=== PATIENT | female | born 1990 | race Caucasian/White ===

== ENCOUNTER → 2022-06-18 10:25 | Outpatient (CLI) | payer SELFPAY ==
[2022-06-18 13:03] LABS: HCG,Quantitative 23752 mIU/ml (0-5.42)
== END ==
PROVIDERS: PCP Family Medicine; Visit Provider Obstetrics & Gynecology
DX: Z32.00 Encounter for pregnancy test, result unknown (principal); N92.6 Irregular menstruation, unspecified
CPT/HCPCS: 36415; 84702

== ENCOUNTER → 2022-06-22 12:00 | Outpatient (CLI) | payer SELFPAY ==
[2022-06-22 12:25] LABS: Basophils # 0.1 K/mm3 (0-0.2); Basophils % 0.6 % (0.1-2.0); Eosinophils # 0.2 K/mm3 (0.0-0.4); Eosinophils % 2.2 % (0.1-12.0); Hematocrit 41.2 % (37.0-47.0); Hemoglobin 13.4 g/dL (12.2-16.2); Lymphocytes # 1.6 K/mm3 (0.7-4.5); Lymphocytes % 19.4 % (10-50); Mean Corpuscular HGB Conc 32.4 g/dL (31.8-35.4); Mean Corpuscular Volume 89.5 fl (81-99); Mean Platelet Volume 7.8 fl (7.4-10.4); Monocytes # 0.3 K/mm3 (0.1-1.0); Monocytes % 3.7 % (1.7-9.3); Neutrophils % 74.1 % (37.0-80.0); Platelet Count 366 K/mm3 (142-424); Red Blood Count 4.61 M/mm3 (4.20-5.40); Red Cell Distribution Width 13.7 % (11.5-17.5); White Blood Count 8.1 K/mm3 (4.8-10.8)
[2022-06-22 13:22] LABS: HCG,Quantitative 18753 mIU/ml (0-5.42)
[2022-06-23 08:47] LABS: Progesterone 7.8 ng/mL (.)
[2022-06-26 08:00] LABS: Neisseria gonorrhoeae, NAA Negative (Negative)
== END ==
PROVIDERS: PCP Family Medicine; Visit Provider Obstetrics & Gynecology
DX: Z34.90 Encounter for supervision of normal pregnancy, unspecified, unspecified trimester (principal)
CPT/HCPCS: 36415; 84144; 84702; 85025; 86900; 86901; 87491; 87591

== ENCOUNTER → 2022-06-29 11:02 | Outpatient (CLI) | payer SELFPAY ==
[2022-06-29 14:09] LABS: HCG,Quantitative 8388 mIU/ml (0-5.42)
== END ==
PROVIDERS: PCP Family Medicine; Visit Provider Obstetrics & Gynecology
DX: O36.80X1 Pregnancy with inconclusive fetal viability, fetus 1 (principal)
CPT/HCPCS: 36415; 84702

== ENCOUNTER 2022-07-03 08:35 | Emergency (ER) | payer SELFPAY ==
[2022-07-03 08:37] VITALS: BP 136/84; PULSE 90; RESP 16; TEMP 36.7; O2SAT 99; BMI 30.1
[2022-07-03 08:41] VITALS: BP 136/84; PULSE 92; RESP 18; O2SAT 100
--- NOTE | 2022-07-03 08:48 | HMH.EDGENADL ---
Discharge Plan Disposition Patient Disposition: Home, Self-Care Condition: Good Prescriptions Prescriptions: New misoprostol [Cytotec] 200 mcg tablet 400 mcg PO QID 1 Days Qty: 8 0RF No Action ferrous sulfate 325 mg (65 mg iron) tablet 325 mg PO BID Referrals Follow up/Referrals: Stevie Garcia MD [Primary Care Provider] - See instructions Activity Restrictions/Add. Instructions Additional Instructions/Restrictions: Pelvic rest. Return for worsening bleeding or other concerns. 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 Clinical Impressions Clinical Impression: Incomplete Instructions Patient Instructions: Dealing With Miscarriage, DI for Miscarriage Discharge ED Provider: Rigoberto Acuna General Adult HPI General Chief complaint: Vaginal Bleeding Stated complaint: vaginal bleeding Time Seen by Provider: 07/03/22 08:42 History of Present Illness HPI narrative: Patient presents in her eighth week of complaining of vaginal bleeding and pelvic discomfort. She believes she has had a miscarriage and was persistent bleeding. She did have a previous ultrasound. She describes the bleeding as moderate to severe and without exacerbating or alleviating factors. This is her first . Related Data Home Medications Medication Instructions Recorded Confirmed ferrous sulfate 325 mg (65 mg 325 mg PO BID 06/22/22 06/22/22 iron) tablet Previous Rx's Medication Instructions Recorded misoprostol 200 mcg tablet 400 mcg PO QID 1 day #8 tabs 07/03/22 (Cytotec) Allergies Allergy/AdvReac Type Severity Reaction Status Date / Time No Known Allergies Allergy Verified 07/03/22 09:03 [facility] Medical History Rastafari ancestry with inconclusive viability, fetus 1 Social History (Updated 06/22/22 @ 11:49 by Sandra Page DO) Smoking Status: Never smoker alcohol intake: never current occupational status: unemployed Travel in the last 8 weeks: None ROS Obtained: Yes All systems reviewed & no additional complaints except as documented Physical Exam General General appearance: alert and in no apparent distress Head Head exam: atraumatic, normocephalic and normal inspection Eye Eye exam: Present normal appearance, PERRL and EOMI ENT ENT exam: Present normal exam, normal oropharynx, mucous membranes moist, TM's normal bilaterally and normal external ear exam Neck Neck exam: Present normal inspection, full ROM and trachea midline; Absent meningismus or lymphadenopathy Chest Chest inspection: Present normal inspection and symmetric chest wall rise; Absent tenderness Respiratory Respiratory exam: Present normal lung sounds bilaterally; Absent respiratory distress Cardiovascular Cardiovascular exam: Present regular rate and normal rhythm; Absent JVD Abdominal Exam Abdominal exam: Present tenderness (There is mild lower abdominal tenderness without rebound or guarding.) Speculum exam: Present vaginal bleeding Extremities Exam Extremities exam: Present normal inspection, full ROM and normal capillary refill; Absent calf tenderness Back Exam Back exam: Present normal inspection; Absent tenderness Neurological Exam Neurological exam: Present alert and oriented X3 Psychiatric Psychiatric exam: Present normal affect and normal mood Skin Skin exam: Present warm, dry, intact and normal color Lymphatic Lymphatic Findings: no adenopathy Medical Decision Making Medical Records Medical records reviewed: Yes I reviewed the patient's medical records. Roverto Inquiry Pt receiving controlled substance: No Vital Signs: 07/03/22 08:37 07/03/22 08:41 07/03/22 09:30 Temperature 98.1 F Temperature Source Oral Pulse Rate 92 H 87 Pulse Rate [Right Radial] 90 Respiratory Rate 16 18 18 Blood Pressure 136/84 125/85 Blood Pressure [Right Arm] 136/84 Blood Pressure
[2022-07-03 08:54] VITALS: BMI 32.1
--- NOTE | 2022-07-03 08:54 | US_ITS ---
FINAL REPORT CLINICAL HISTORY: vaginal bleeding first trimester FINDINGS: US TRANSVAGINAL Sonographic images of the pelvis were obtained. No gestational sac is identified. There is no intrauterine . There is an ovoid heterogeneous area in the lower uterine segment measuring 38 x 13 mm which may represent a blood clot or retained product of conception. There is a 2.6 cm left ovarian cyst. IMPRESSION: Findings consistent with failed . Reviewed, Interpreted and Dictated by Fabián Estrada III, MD Transcribed by Doris Islas Authenticated and [facility]
--- NOTE | 2022-07-03 09:02 | PC.NURSE ---
pt up to restroom at this time,
--- NOTE | 2022-07-03 09:05 | PC.NURSE ---
notified rad of ultrasound order, spoke with derick
[2022-07-03 09:07] LABS: Basophils # 0.1 K/mm3 (0-0.2); Basophils % 0.7 % (0.1-2.0); Eosinophils # 0.2 K/mm3 (0.0-0.4); Eosinophils % 2.7 % (0.1-12.0); Hematocrit 39.4 % (37.0-47.0); Hemoglobin 13.4 g/dL (12.2-16.2); Lymphocytes # 1.3 K/mm3 (0.7-4.5); Lymphocytes % 17.5 % (10-50); Mean Corpuscular HGB Conc 34.1 g/dL (31.8-35.4); Mean Corpuscular Hemoglobin 30.3 pg (27.0-31.2); Mean Corpuscular Volume 88.9 fl (81-99); Monocytes # 0.3 K/mm3 (0.1-1.0); Monocytes % 3.9 % (1.7-9.3); Neutrophils # 5.5 K/mm3 (1.8-7.8); Neutrophils % 75.2 % (37.0-80.0); Platelet Count 297 K/mm3 (142-424); Red Blood Count 4.43 M/mm3 (4.20-5.40); Red Cell Distribution Width 13.5 % (11.5-17.5); White Blood Count 7.4 K/mm3 (4.8-10.8)
[2022-07-03 09:15] LABS: Alanine Aminotransferase 29 U/L (12-78); Albumin Level 4.3 g/dl (3.5-5.0); Albumin/Globulin Ratio 1.9 (1.1-1.8); Alkaline Phosphatase 62 U/L (38-126); Aspartate Amino Transferase 28 U/L (14-36); Bilirubin,Total 0.3 mg/dl (0.2-1.3); Blood Urea Nitrogen 8 mg/dl (7-17); Calcium 10.7 mg/dl (8.4-10.2); Carbon Dioxide 27 mmol/L (22.0-30.0); Chloride 97 mmol/L (98-107); Creatinine Clearance Estimated 142 mL/min (50-200); Estimated Glomerular Filt Rate 98 ml/min (>60); GFR (African American) 118 ML/MIN (>60); Globulin 2.3 g/dL (1.3-3.2); Glucose 124 mg/dl (74-100); Sodium 138 mmol/L (136-145); Total Protein,Serum 6.6 g/dl (6.3-8.2)
--- NOTE | 2022-07-03 09:19 | PC.NURSE ---
assisted ER MD with pelvic exam at this time
[2022-07-03 09:30] VITALS: BP 125/85; PULSE 87; RESP 18; O2SAT 99
[2022-07-03 10:04] LABS: HCG,Quantitative 2180 mIU/ml (0-5.42)
[2022-07-03 10:30] VITALS: BP 108/74; PULSE 76; RESP 20; O2SAT 99
[2022-07-03 11:03] VITALS: BP 108/74; PULSE 79; RESP 18; TEMP 36.7; O2SAT 99
== END 2022-07-03 11:03 | disposition home or self-care (01) ==
PROVIDERS: Emergency Provider Emergency Medicine; PCP Family Medicine
DX: O03.4 Incomplete spontaneous abortion without complication (principal)
CPT/HCPCS: 76817; 80053; 84702; 85025; 86900; 86901; 99284

== ENCOUNTER → 2022-07-06 16:03 | Outpatient (CLI) | payer SELFPAY ==
[2022-07-06 17:32] LABS: HCG,Quantitative 377 mIU/ml (0-5.42)
== END ==
PROVIDERS: PCP Family Medicine; Visit Provider Obstetrics & Gynecology
DX: O03.9 Complete or unspecified spontaneous abortion without complication (principal)
CPT/HCPCS: 36415; 84702

== ENCOUNTER → 2022-07-13 15:58 | Outpatient (CLI) | payer SELFPAY ==
[2022-07-13 17:21] LABS: HCG,Quantitative 36 mIU/ml (0-5.42)
== END ==
PROVIDERS: PCP Family Medicine; Visit Provider Obstetrics & Gynecology
DX: O02.1 Missed abortion (principal)
CPT/HCPCS: 36415; 84702

== ENCOUNTER → 2022-07-22 16:35 | Outpatient (CLI) | payer SELFPAY ==
[2022-07-22 18:35] LABS: HCG,Quantitative 7 mIU/ml (0-5.42)
== END ==
PROVIDERS: PCP Family Medicine; Visit Provider Obstetrics & Gynecology
DX: O02.1 Missed abortion (principal)
CPT/HCPCS: 36415; 84702

== ENCOUNTER 2023-01-05 08:28 | Emergency (ER) | payer SELFPAY ==
[2023-01-05] VITALS (7 sets, daily range): BP systolic 103–132; BP diastolic 67–83; PULSE 80–93; RESP 16–17; TEMP 36.7–37.1; O2SAT 99–100; BMI 33.0
[2023-01-05 09:01] LABS: Apearance,Urine Clear (Clear); Color,Urine Yellow (Yellow); Glucose,Urine (UA) Negative (Negative); Ketones,Urine n (Negative); Protein,Urine Negative (Negative)
[2023-01-05 09:02] LABS: Bilirubin,Urine Negative (Negative); Blood, Urine Negative (Negative); UTC Leukocyte Esterase,Urine Negative (Negative); UTC Nitrate,Urine Negative (Negative); Urobilinogen,Urine 0.2 EU/dl (0.2)
--- NOTE | 2023-01-05 09:10 | PC.NURSE ---
BRI WOODRUFF at
--- NOTE | 2023-01-05 09:18 | HMH.EDABDPAI ---
Discharge Plan Disposition Patient Disposition: Home, Self-Care Condition: Good Prescriptions Prescriptions: New cephalexin 500 mg capsule 500 mg PO Q6H 7 Days Qty: 28 0RF No Action ferrous sulfate 325 mg (65 mg iron) tablet 325 mg PO BID misoprostol [Cytotec] 200 mcg tablet 400 mcg PO QID 1 Days Qty: 8 0RF Referrals Follow up/Referrals: Stevie Garcia MD [Primary Care Provider] - See instructions Activity Restrictions/Add. Instructions Additional Instructions/Restrictions: Return immediately for worsening abdominal pain, fever or other concerns. Clinical Impressions Clinical Impression: , Abdominal pain, Acute lower urinary tract infection Discharge ED Provider: Rigoberto Acuna Abdominal Pain HPI General Chief Complaint: Abdominal Pain Stated Complaint: abd pain, pain while urinating Time Seen by Provider: 01/05/23 09:10 Mode of Arrival: Ambulatory Source of Information: Patient Limitations: No Limitations Description of Symptoms (Recalled from ER Triage Doc. by RN): pt to the ED from the [facility] with abd. cramping and cloudy urine x 2 days. pt reports she believes she is approx. 7 weeks pregnany based on her LMP and home test. pt denies any vaginalbleeding or abnormal d/c. History of Present Illness HPI narrative: Patient presents with approximate 2 days of lower abdominal discomfort. She reports being approximately 7 weeks based on her LMP and home test. She denies abnormal vaginal discharge or bleeding. She describes the pain as mild to moderate and without associated nausea vomiting or diarrhea or fever. This is her second with her first having terminated in miscarriage. Related Data Home Medications Medication Instructions Recorded Confirmed ferrous sulfate 325 mg (65 mg 325 mg PO BID 06/22/22 06/22/22 iron) tablet Previous Rx's Medication Instructions Recorded misoprostol 200 mcg tablet 400 mcg PO QID 1 day #8 tabs 07/03/22 (Cytotec) cephalexin 500 mg capsule 500 mg PO Q6H 7 days #28 caps 01/05/23 Allergies Allergy/AdvReac Type Severity Reaction Status Date / Time No Known Allergies Allergy Verified 07/03/22 09:03 [facility] Disclaimer: The information contained in this section may have been updated after the patient was seen, as this information can be updated by other users. Medical History Restorationist ancestry with inconclusive viability, fetus 1 Social History (Updated 06/22/22 @ 11:49 by Sandra Page DO) Smoking Status: Never smoker alcohol intake: never current occupational status: unemployed Travel in the last 8 weeks: None ROS Obtained: Yes All systems reviewed & no additional complaints except as documented Physical Exam General General appearance: alert and in no apparent distress Head Head exam: atraumatic, normocephalic and normal inspection Eye Eye exam: Present normal appearance, PERRL and EOMI ENT ENT exam: Present normal exam, normal oropharynx, mucous membranes moist, TM's normal bilaterally and normal external ear exam Neck Neck exam: Present normal inspection, full ROM and trachea midline; Absent meningismus or lymphadenopathy Chest Chest inspection: Present normal inspection and symmetric chest wall rise; Absent tenderness Respiratory Respiratory exam: Present normal lung sounds bilaterally; Absent respiratory distress Cardiovascular Cardiovascular exam: Present regular rate and normal rhythm; Absent JVD Abdominal Exam Abdominal exam: Present tenderness (There is mild diffuse lower abdominal tenderness slightly worse on the left than the right. There is no rebound or guarding.) Extremities Exam Extremities exam: Present normal inspection, full ROM and normal capillary refill; Absent calf tenderness Back Exam Back exam: Present normal inspection; Absent tenderness Neurological Exam Neurologi
[2023-01-05 09:49] LABS: Basophils % 0.1 % (0.1-2.0); Eosinophils # 0.1 K/mm3 (0.0-0.4); Eosinophils % 0.4 % (0.1-12.0); Hematocrit 40.5 % (37.0-47.0); Hemoglobin 13.4 g/dL (12.2-16.2); Lymphocytes # 1.4 K/mm3 (0.7-4.5); Lymphocytes % 13.1 % (10-50); Mean Corpuscular HGB Conc 33.2 g/dL (31.8-35.4); Mean Corpuscular Hemoglobin 29.7 pg (27.0-31.2); Mean Corpuscular Volume 89.4 fl (81-99); Mean Platelet Volume 7.6 fl (7.4-10.4); Monocytes # 0.5 K/mm3 (0.1-1.0); Monocytes % 4.6 % (1.7-9.3); Neutrophils # 8.9 K/mm3 (1.8-7.8); Neutrophils % 81.8 % (37.0-80.0); Platelet Count 292 K/mm3 (142-424); Red Blood Count 4.53 M/mm3 (4.20-5.40); Red Cell Distribution Width 13.5 % (11.5-17.5); White Blood Count 10.9 K/mm3 (4.8-10.8)
[2023-01-05 09:52] LABS: Chloride 103 mmol/L (98-107); Sodium 137 mmol/L (136-145)
[2023-01-05 09:55] LABS: Alanine Aminotransferase 23 U/L (12-78); Albumin/Globulin Ratio 1.5 (1.1-1.8); Alkaline Phosphatase 50 U/L (38-126); Aspartate Amino Transferase 26 U/L (14-36); Bilirubin,Total 0.4 mg/dl (0.2-1.3); Blood Urea Nitrogen 10 mg/dl (7-17); Calcium 10.1 mg/dl (8.4-10.2); Carbon Dioxide 26 mmol/L (22.0-30.0); Creatinine Clearance Estimated 202 mL/min (50-200); Estimated Glomerular Filt Rate 143 ml/min (>60); GFR (African American) 173 ML/MIN (>60); Globulin 2.7 g/dL (1.3-3.2); Glucose 91 mg/dl (74-100); Lipase 91 U/L (23-300); Total Protein,Serum 6.7 g/dl (6.3-8.2)
[2023-01-05 10:04] LABS: Microscopic, Urine URINE MICROSCOPIC (MICROSCOPIC)
[2023-01-05 10:05] LABS: Urine Pregnancy, HCG Qual. Positive (Negative)
[2023-01-05 10:06] LABS: Appearance,Urine CLEAR (Clear); Bilirubin,Urine Negative (Negative); Blood, Urine Negative (Negative); Color,Urine YELLOW (Yellow); Glucose,Urine (UA) Negative (Negative); Ketones,Urine Negative (Negative); Leukocyte Esterase,Urine Negative (Negative); Nitrate,Urine Negative (Negative); Protein,Urine Negative (Negative); Specific Gravity, Urine <= 1.005 (1.005-1.030); Urobilinogen,Urine 0.2 EU/dl (0.2)
--- NOTE | 2023-01-05 10:26 | US_ITS ---
FINAL REPORT CLINICAL HISTORY: pelvic pain FINDINGS: PELVIC ULTRASOUND A single living intrauterine is present. Cardiac activity is confirmed at 169 beats per minute. Estimated gestational age is 10 weeks 4 days based on a crown-rump length of 36.6 mm. Appropriate amount of fluid is present. The ovaries are unremarkable. IMPRESSION: Single living intrauterine with an estimated gestational age of 10 weeks 4 days. Reviewed, Interpreted and Dictated by Morris Braga MD Transcribed by Kyle Thomas Authenticated and [facility]
--- NOTE | 2023-01-05 10:26 | PC.NURSE ---
per lab staff will be approx 12 minutes until results of beta quant
--- NOTE | 2023-01-05 10:27 | PC.NURSE ---
rad staff notified of u/s order
[2023-01-05 10:39] LABS: Bacteria,Urine Trace /lpf; Squamous Epithelial Cell,Urine Occasional #/hpf (0-5)
--- NOTE | 2023-01-05 10:45 | PC.NURSE ---
CHECKED IN NOTHING IS NEEDED AT THIS TIME
--- NOTE | 2023-01-05 10:56 | PC.NURSE ---
pt to u/s via wheelchair
--- NOTE | 2023-01-05 11:17 | PC.NURSE ---
pt return from u/s
--- NOTE | 2023-01-05 11:57 | PC.NURSE ---
waiting automation technician back from MRI to see about ability to do an abd/pelvis to r/o appendicitis r/t pt is .
--- NOTE | 2023-01-05 12:17 | PC.NURSE ---
came out of pt room and informed this nurse that the patient has changed her mind decided against the MRI at this time.
== END 2023-01-05 12:42 | disposition home or self-care (01) ==
LOC: UTC 08:31 → ER 09:04
PROVIDERS: Nurse Practitioner Family; Emergency Provider Emergency Medicine; PCP Family Medicine
DX: O23.31 Infections of other parts of urinary tract in pregnancy, first trimester (principal); Z3A.01 Less than 8 weeks gestation of pregnancy
CPT/HCPCS: 76817; 80053; 81001; 81003; 81025; 83690; 84702; 85025; 87086; 99284; 99285

== ENCOUNTER → 2023-01-12 16:32 | Outpatient (CLI) | payer SELFPAY ==
[2023-01-14 11:17] LABS: Progesterone 13.9 ng/mL (.)
== END ==
PROVIDERS: PCP Obstetrics & Gynecology; Visit Provider Obstetrics & Gynecology
DX: Z34.90 Encounter for supervision of normal pregnancy, unspecified, unspecified trimester (principal)
CPT/HCPCS: 36415; 84144; 84702

== ENCOUNTER → 2023-01-15 09:26 | Outpatient (CLI) | payer SELFPAY ==
[2023-01-15 10:20] LABS: Basophils % 0.5 % (0.1-2.0); Eosinophils # 0.1 K/mm3 (0.0-0.4); Eosinophils % 1.2 % (0.1-12.0); Hematocrit 39.7 % (37.0-47.0); Hemoglobin 13.6 g/dL (12.2-16.2); Lymphocytes # 1.2 K/mm3 (0.7-4.5); Lymphocytes % 19.5 % (10-50); Mean Corpuscular HGB Conc 34.2 g/dL (31.8-35.4); Mean Corpuscular Hemoglobin 29.9 pg (27.0-31.2); Mean Corpuscular Volume 87.5 fl (81-99); Mean Platelet Volume 7.4 fl (7.4-10.4); Monocytes # 0.3 K/mm3 (0.1-1.0); Monocytes % 5.5 % (1.7-9.3); Neutrophils # 4.3 K/mm3 (1.8-7.8); Neutrophils % 73.4 % (37.0-80.0); Platelet Count 287 K/mm3 (142-424); Red Blood Count 4.53 M/mm3 (4.20-5.40); Red Cell Distribution Width 13.3 % (11.5-17.5); White Blood Count 5.9 K/mm3 (4.8-10.8)
[2023-01-16 12:28] LABS: HIV Screen 4th Generation wRfx Non Reactive (Non Reactive); Rapid Plasma Reagin Ab Titer Non Reactive (NonRea<1:1); Rubella Antibodies, IgG <0.90 index (Immune >0.99)
[2023-02-23 23:57] LABS: Hepatitis B Surface Antigen Negative; Hepatitis C Antibody Non Reactive
== END ==
PROVIDERS: PCP Obstetrics & Gynecology; Visit Provider Obstetrics & Gynecology
DX: Z34.91 Encounter for supervision of normal pregnancy, unspecified, first trimester (principal); Z3A.11 11 weeks gestation of pregnancy
CPT/HCPCS: 36415; 85025; 86593; 86703; 86762; 86850; 87086; 87088; 87186; 87340; 87380; G0432

== ENCOUNTER → 2023-03-24 12:50 | Outpatient (CLI) | payer SELFPAY ==
--- NOTE | 2023-03-24 12:51 | US_ITS ---
PROCEDURE: US OB /MATERNAL DETAIL CLINICAL INDICATION: 20 WEEK ANATOMY SCAN COMPARISON: US US OB TRANSVAGINAL from 01/05/2023 FINDINGS: Transabdominal sonographic images of the uterus were obtained. From her established due date she is 21 weeks 3 days single viable intrauterine gestation. Cephalic position. Placenta: Anteriorplacenta grade 1. There is average amount fluid. The cervix appears satisfactory. Closed and measuring 4.8 cm in length. Complete survey performed and was unremarkable on the submitted images as in PACS. No discrete anomalies identified on survey imaging by technologist. Active fetus. Three-vessel cord with satisfactory umbilical cord insertion. 4- chamber heart noted. Situs, LVOT, RVOT, aortic arch appear normal. Survey of brain & ventricles Unremarkable. Cerebellum, cisterna magna, choroid plexus, thalamus appear normal Face and neck survey unremarkable. Lips and nose, profile and nasion appear normal Diaphragm and chest views unremarkable. Abdomen: Both kidneys noted and both have renal pyelectasis measuring 6.0 mm and 4.4 mm. Stomach and bladder noted and satisfactory. Spine: Survey of the spine satisfactory with no anomalies identified nor imaged. Upper, thoracic and lower spine appear normal. Both arms and legs noted. Amniotic Fluid: Adequate. Measurements: Average ultrasound age 21weeks 4days. Estimated due date by ultrasound age 1207/31/2023. Estimated weight 436g BPD = 22weeks OFD = 21weeks HC = 20weeks 5days AC = 21weeks 6days FL = 21weeks 5days Growth Percentile= 53rd Heart Rate = 142bpm Cerebellum = 21weeks 2days Humerus = 21weeks 2days HC/AC is 1.09 CI is 0.83 FL/BPD is 0.7 FL/AC is 0.22 IMPRESSION: 1. Viable fetus in the cephalic presentation with an anterior placenta grade 1. The fluid is within normal limits. 2. There is bilateral renal pyelectasis measuring 6.0 mm and 4.4 mm. The rest of the anatomical scan appears normal. 3. There has been good interval growth. Dictated by: Washington Keating MD 03/24/2023 15:44 Washington Keating MD in OV 03/24/2023 15:44
== END ==
PROVIDERS: PCP Family Medicine; Visit Provider Obstetrics & Gynecology
DX: Z34.92 Encounter for supervision of normal pregnancy, unspecified, second trimester (principal); Z3A.20 20 weeks gestation of pregnancy
CPT/HCPCS: 76811

== ENCOUNTER → 2023-04-21 10:31 | Outpatient (CLI) | payer SELFPAY ==
--- NOTE | 2023-04-21 10:31 | US_ITS ---
PROCEDURE: US OB FOLLOW UP CLINICAL INDICATION: renal abnormality of fetus on ultrasound COMPARISON: US OB /MATERNAL DETAIL from 03/24/2023 FINDINGS: Transabdominal sonographic images of the uterus were obtained. The following parameters are obtained: From her last established due date she is 24weeks 5days Viable fetus in the cephalic presentation with an anterior placenta grade 1. The cervix measures 4.3 cm. heart rate: 156bpm bpm. BPD: 25weeks 4days HC: 25weeks 5days AC: 25weeks 0 days FL: 24weeks 1day 40 percentile HC/AC: 1.16 FL/BPD: 0.68 FL/AC: 0.21 Amniotic fluid appears normal No obvious anomalies evident. Diaphragm, kidneys, three-vessel cord, four chamber heart appear normal. IMPRESSION: 1. Viable fetus in the cephalic presentation with anterior placenta grade 1. The fetus is active. 2. Fluid is within normal limits. 3. There has been good interval growth. 4. There continues to be mild renal pelvis dilation bilaterally. It seems similar to the last exam and maybe even a little less. There is no progression of the dilation. Suggest continued follow-up. Dictated by: Washington Keating MD 04/22/2023 09:17 Washington Keating MD in OV 04/22/2023 09:17
== END ==
PROVIDERS: PCP Family Medicine; Visit Provider Obstetrics & Gynecology
DX: O35.EXX0 Maternal care for other (suspected) fetal abnormality and damage, fetal genitourinary anomalies, not applicable or unspecified (principal)
CPT/HCPCS: 76816

== ENCOUNTER → 2023-07-08 12:45 | Outpatient (CLI) | payer SELFPAY ==
--- NOTE | 2023-07-08 12:46 | US_ITS ---
PROCEDURE: US OB FOLLOW UP CLINICAL INDICATION: renal pelvic dilation COMPARISON: US US OB FOLLOW UP from 04/21/2023 FINDINGS: Transabdominal sonographic images of the pelvis were obtained. The following parameters are obtained: From her established due date she is 35weeks 6days Viable fetus in the cephalic presentation with an anterior placenta grade 2. The cervix measures 2.3 cm. heart rate: 123bpm bpm. BPD: 37weeks 1day HC: 37weeks 4days AC: 35weeks 5days FL: 35weeks 3days HC/AC: 1.04 BPD: 0.75 FL/AC: 0.22 Growth percentile 53 Amniotic fluid index: 10.85cm, MVP 6.0 cm. No obvious anomalies evident. profile seen, stomach, bladder, kidneys, three-vessel cord, four chamber heart appear normal. Minimal renal pelvis dilation today. 3.5 mm and 2.9 mm. IMPRESSION: 1. Viable fetus in the cephalic presentation with an anterior placenta grade 2. 2. The fluid is within normal limits with an amniotic fluid index of 10.85 cm, MVP 6.0 cm. 3. There has been good interval growth with the fetus currently 53rd percentile. 4. There still remains mild renal pelvis dilation at 3.5 mm and 2.9 mm. Considered normal at this time. Dictated by: Washington Keating MD 07/09/2023 11:23 Washington Keating MD in OV 07/09/2023 11:23
== END ==
PROVIDERS: PCP Family Medicine; Visit Provider Obstetrics & Gynecology
DX: N28.89 Other specified disorders of kidney and ureter (principal)
CPT/HCPCS: 76816

== ENCOUNTER → 2023-07-14 09:12 | Outpatient (CLI) | payer SELFPAY | PROVIDERS: PCP Obstetrics & Gynecology; Visit Provider Obstetrics & Gynecology | DX: Z34.93 Encounter for supervision of normal pregnancy, unspecified, third trimester (principal); Z3A.37 37 weeks gestation of pregnancy | CPT/HCPCS: 86403 ==

== ENCOUNTER 2023-08-13 06:25 | Inpatient (IN) | payer SELFPAY ==
[2023-08-13] VITALS (11 sets, daily range): BP systolic 107–147; BP diastolic 61–111; PULSE 76–146; RESP 16–18; TEMP 36.1–36.6; O2SAT 94–100; BMI 38.4
[2023-08-13 06:21] LABS: Microscopic, Urine URINE MICROSCOPIC (MICROSCOPIC)
[2023-08-13 06:22] LABS: Appearance,Urine CLEAR (Clear); Bilirubin,Urine Negative (Negative); Blood, Urine Negative (Negative); Color,Urine YELLOW (Yellow); Glucose,Urine (UA) Negative (Negative); Ketones,Urine Negative (Negative); Leukocyte Esterase,Urine 2+ (Negative); Nitrate,Urine Negative (Negative); PH,Urine 6.5 (5.0-8.5); Protein,Urine Negative (Negative); Specific Gravity, Urine 1.015 (1.005-1.030); Urobilinogen,Urine 0.2 EU/dl (0.2)
[2023-08-13 06:36] LABS: Amphetamine/Metha Screen,Urine Negative ng/ml (<1000); Barbiturates Screen,Urine Negative ng/ml (<200); Benzodiazepines Screen,Urine Negative ng/ml (<200); Cannabinoid Screen,Urine Negative ng/ml (<50); Cocaine Screen,Urine Negative ng/ml (<300); Methadone Screen,Urine Negative ng/ml (<300); Opiate Screen,Urine Negative ng/ml (<300)
[2023-08-13 06:45] LABS: Basophils # 0.1 K/mm3 (0-0.2); Basophils % 0.6 % (0.1-2.0); Eosinophils # 0.1 K/mm3 (0.0-0.4); Eosinophils % 1.6 % (0.1-12.0); Hematocrit 40.1 % (37.0-47.0); Hemoglobin 13.8 g/dL (12.2-16.2); Lymphocytes # 1.7 K/mm3 (0.7-4.5); Lymphocytes % 20.9 % (10-50); Mean Corpuscular HGB Conc 34.5 g/dL (31.8-35.4); Mean Corpuscular Hemoglobin 30.6 pg (27.0-31.2); Mean Corpuscular Volume 88.7 fl (81-99); Mean Platelet Volume 8.3 fl (7.4-10.4); Monocytes # 0.4 K/mm3 (0.1-1.0); Monocytes % 5.2 % (1.7-9.3); Neutrophils # 5.8 K/mm3 (1.8-7.8); Neutrophils % 71.6 % (37.0-80.0); Platelet Count 232 K/mm3 (142-424); Red Blood Count 4.52 M/mm3 (4.20-5.40); Red Cell Distribution Width 14.7 % (11.5-17.5); White Blood Count 8.1 K/mm3 (4.8-10.8)
[2023-08-13 06:56] LABS: Alanine Aminotransferase 36 U/L (12-78); Albumin Level 3.5 g/dl (3.5-5.0); Albumin/Globulin Ratio 1.3 (1.1-1.8); Alkaline Phosphatase 131 U/L (38-126); Anion Gap 6.9 mEq/L (5-15); Aspartate Amino Transferase 33 U/L (14-36); Bilirubin,Total 0.3 mg/dl (0.2-1.3); Blood Urea Nitrogen 12 mg/dl (7-17); Calcium 9.5 mg/dl (8.4-10.2); Carbon Dioxide 21 mmol/L (22.0-30.0); Chloride 107 mmol/L (98-107); Creatinine Clearance Estimated 243 mL/min (50-200); Estimated Glomerular Filt Rate 143 ml/min (>60); GFR (African American) 173 ML/MIN (>60); Globulin 2.7 g/dL (1.3-3.2); Glucose 94 mg/dl (74-100); Potassium 3.9 mmoL/L (3.5-5.1); Sodium 131 mmol/L (136-145); Total Protein,Serum 6.2 g/dl (6.3-8.2)
[2023-08-13 07:10] LABS: Bacteria,Urine 1+ /lpf
--- NOTE | 2023-08-13 07:32 | P.HP_ITS ---
OB - H&P: HPI Antepartum History of Present Illness Chief complaint: Regular, painful uterine contractions History of present illness: Mrs Ela Potts is a very pleasant 32 yo at 41w0d who presents to [facility] L&D with complaint of regular, painful uterine contractions that woke her from sleep around 0330 this morning. Baby is very active. No leakage of fluid or vaginal bleeding. She has had good care. complicated by GDMA1. She has had great glycemic control with diet. History of Present Criteria for establishing EDC:: LMP confirmed by 1st trimester US care: good care Ultrasounds: abnormal US findings (mild renal pelvis dilation) Obstetrical complications: gestational diabetes (diet controlled) Medical complications: none Labs Blood type: A (+) positive Rubella: nonimmune RPR/VDRL: nonreactive GBS status: negative HBsAG: negative PFSH PFSH Disclaimer: The information contained in this section may have been updated after the patient was seen, as this information can be updated by other users. Medical History Active labor Dilation of renal pelvis of fetus Gestational diabetes mellitus, class A1 Post term , 41 weeks with inconclusive viability, fetus 1 Rubella non-immune status, antepartum Surgical History History of surgery on arm Family History Other No significant family history Social History Smoking Status: Never smoker alcohol intake: never current occupational status: other Travel in the last 8 weeks: None Review of Systems Review of Systems Review of systems:: pertinent systems reviewed and negative unless documented below *Genitourinary Comments: + regular, painful contractions Meds Home Medications and Allergies Home Medications Medication Instructions Recorded Confirmed Type vits no.126-ferrous fum tab PO 01/15/23 08/10/23 History 28 mg iron-folic acid 800 mcg tablet (Classic ) vitamin B complex (B 1 tab PO DAILY 01/15/23 08/10/23 History Complex-Vitamin B12 tablet) New Prescriptions to Start Prescriptions: Allergies Allergy/AdvReac Type Severity Reaction Status Date / Time No Known Allergies Allergy Verified 08/10/23 08:21 OB - H&P: Exam Physical Exam Vital signs: Temp Pulse Resp BP Pulse Ox O2 Del Method 97.6 F 76 17 131/97 H 99 Room Air 08/13/23 07:01 08/13/23 07:01 08/13/23 07:01 08/13/23 07:01 08/13/23 07:01 08/13/23 07:01 Constitutional no acute distress and cooperative Routine HEENT Exam Head: Present normocephalic and atraumatic Eye: Absent conjunctivae pink ENT: Present mucous membranes moist Routine Neck Exam Present full ROM Routine Respiratory Exam Present CTA bilaterally and normal respiratory effort Routine Cardiovascular Exam Present RRR Routine Abdominal Exam Present soft (Gravid); Absent tenderness Routine Rectal Exam Patient deferred: visual exam Routine Exam Patient deferred: external exam Routine Extremities Exam Present full ROM; Absent edema or calf tenderness Routine Neurological Exam Present alert, oriented X3 and moving all extremities Routine Psychiatric Exam Present normal affect and cooperative Detailed Labor and Delivery Exam Dilation (cm): 8 Effacement (%): 95 Cervix position: anterior station: 0 Membranes: artificially ruptured (0718 with clear fluid) Amniotic fluid: clear Baseline heart rate: 130 monitor accelerations: Present monitor decelerations: None retirement variability: Moderate (11-25) Contraction frequency (min): 3 Tachysystole: No OB - Results Labs Labs: Short CBC 08/13/23 Range/Units 06:32 WBC 8.1 (4.8-10.8) K/mm3 Hgb 13.8 (12.2-16.2) g/dL Hct 40.1 (37.0-47.0) % Plt Count 232 (142-424) K/mm3 BMP 08/13/23 06:32 Sodium 131 L Potassium 3.9 Chloride 107 Carbon Dioxide 21 L BUN 12 Creatinine 0.50 L Glucose 94 Calcium 9.5 Liver Function 08/13/23 Range/Units 06:32 Total Bilirubin 0.3 (0.2-1.3) mg/dl AST 33 (14-36) U/L ALT 36 (12-78) U/L Alkaline Phosphatase 131 H (38-126) U/L Albumin 3.5 (3.5-5.0) g/dl Urine 08/13/23 Range/Units 06:00 Urine Color Yellow (Yellow) Urine Appearance Clear (Clear) Urine pH 6.5 (5.0-8.5) Ur Specific [place] 1.015 (1.005-1.030) Urine Protein Negative (Negative) Urine Glucose (UA) Negative (Negative) OB - A/P Antepartum (1) Post term , 41 weeks: Status: Acute (2) Active labor: Status: Acute (3) Gestational diabetes mellitus, class A1: Status: Acute (4) Dilation of renal pelvis of fetus: Status: Acute (5) Rubella non-immune status, antepartum: Status: Acute Additional Plan Planning to breastfeed?: Yes Additional Information:: Admit to [facility] L&D for active labor GBS negative Close monitoring Anticipate spontaneous vaginal delivery
[2023-08-13 08:16] LABS: Phencyclidine Screen,Urine Negative ng/ml (<25)
[2023-08-13] MEDS: OXYTOCIN 10 UNITS/ML VIAL 10 UNIT IM (14:18)
[2023-08-13] MEDS: HYDROMORPHONE 2MG/ML SYRINGE 1 MG IV (14:38)
--- NOTE | 2023-08-13 15:01 | EXP.DN ---
Delivery Note Delivery Date:: 08/13/23 Delivery Time:: 14:12 Anesthesia Type: None Was labor medically induced?: No Gestational age (weeks): 41 Infant delivered prior to 39 weeks?: No Gender: Female at 1 minute: 6 at 5 minutes: 7 Delivery Procedure:: Mom complete without epidural. Pushed for approximately 1 hour 19 minutes. Kiwi vacuum was applied at +2 station for maternal exhaustion and poor expulsive effort. Vacuum pulled through one contraction, no pop offs. Vacuum removed. Head delivered spontaneously over intact perineum in direct OA position. No nuchal cord. Anterior shoulder delivered with gentle downward pressure. Posterior, left, arm was internally rotated with hand under chin. Left arm delivered follow by spontaneous delivery of posterior shoulder and remainder of body. Baby placed on maternal abdomen, mouth and nares bulb suctioned, warmed/dried and stimulated. Delayed cord clamping was performed for 60 seconds. Cord was clamped and cut by father of baby. Cord blood was obtained. Pitocin IM was given. Fundal massage and gentle traction did not release the placenta. Mom was given a chance to rest. Fundal massage with gentle traction was initiated again. Cord avulsion occurred. Ela was given Dilaudid 1 mg IV and manual extraction was attempted without success. Mom tolerated manual extraction attempt well. Decision was made to go to the OR for removal of retained placenta. Mom and baby were skin to skin and doing well after delivery. Live female baby (baby's name is Alva Vargas) APGARs 6 (1 min), 7 (5 Min) EBL 200 mL Discussed risks, alternatives, expectations and possible complications of manual extraction. Risks include infection, bleeding and damage to adjacent structures. Discussed possibility of rare placenta accreta undiagnosed. Discussed risk of hysterectomy. All questions addressed and answered. Her and her voiced understanding of risks and possible complications. Consent form signed.
--- NOTE | 2023-08-13 15:14 | EXP.ANES.CKL ---
[facility] Disclaimer: The information contained in this section may have been updated after the patient was seen, as this information can be updated by other users. Medical History Active labor Dilation of renal pelvis of fetus Gestational diabetes mellitus, class A1 Post term , 41 weeks with inconclusive viability, fetus 1 Rubella non-immune status, antepartum Surgical History History of surgery on arm Family History Other No significant family history Social History Smoking Status: Never smoker alcohol intake: never substance use type: denies use current occupational status: other Travel in the last 8 weeks: None [facility] Anesthesia Checklist Patient Identification Patient Identification: Arm Band and Verbal (Name & ) Structural Data Admitted From: Inpatient (OB) Planned Operative Procedure/s: Manual evacuation of retained placenta vs. D& E Consent for Planned Operative Procedure(s) Verified: Yes Verified Documents: Surgical Consent and History and Physical NPO Status Verified Time NPO: 15:00 Chart Verification Results Verified: CBC, BMP and H & H Additional verifications Patient : No Anesthesia Reactions: No Cardiovascular Assessment Heart Sounds: S1 & S2 Pulse Rhythm: Irregular Peripheral Edema: No Airway Assessment Mallampati Score:: Class II C-Spine Mobility Assessed: Yes (FROM) TMJ Mobility Assessed: Yes Dentition: Good Dentition (Nothing loose per pt.) Neurological Assessment Level of Consciousness: Awake, Alert, Appropriate and Follows Commands Hx Seizures: No Numbness or tingling in extremities: No Anesthesia Plan Anesthesia Risk discussed: Yes Anesthesia Plan: Verified ASA Class: II (Emergency) Anesthesia Type: Spinal
[2023-08-13] MEDS: miSOPROStoL 200 MCG TABLET 1000 MCG (15:55)
--- NOTE | 2023-08-13 15:56 | US_ITS ---
PROCEDURE INFORMATION: Exam: US Nonobstetric Pelvis; Complete Exam date and time: 08/13/2023 3:31 PM Age: 32 years old Clinical indication: Other: Hemorrhaging after delievery; Additional info: Retained placenta TECHNIQUE: Imaging protocol: Transabdominal pelvic nonobstetric ultrasound. Complete exam. Real time ultrasound with image documentation. COMPARISON: US OB FOLLOW UP 07/08/2023 12:48 PM FINDINGS: Uterus: Limited cine loops of the uterus demonstrate: Heterogeneous echogenic material within the endometrial canal favored to represent blood products. No definitive hematoma or masslike lesions to suggest retained products of conception. Right ovary/adnexa: Not evaluated. Left ovary/adnexa: Not evaluated Intraperitoneal space: Not evaluated Urinary bladder: Not evaluated. IMPRESSION: Limited evaluation of the uterus demonstrate heterogeneous echogenic material within the endometrial canal favored to represent blood products. No definitive hematoma or masslike lesions to suggest retained products of conception.
--- NOTE | 2023-08-13 16:12 | XR_ITS ---
FINAL REPORT CLINICAL HISTORY: count in OR FINDINGS: SINGLE VIEW ABDOMEN A single view of the abdomen was obtained. There is a nonobstructive bowel gas pattern. There are no abnormally dilated loops of small bowel. No abnormal calcifications are identified. No foreign body identified. IMPRESSION: No foreign body identified. Reviewed, Interpreted and Dictated by Fabián Estrada III, MD Transcribed by Apryl Rebolledo Authenticated and [facility]
--- NOTE | 2023-08-13 16:21 | EXP.OP.NOTE ---
Date of procedure: 08/13/23 Pre-op Diagnosis:: 1. Retained placenta s/p vacuum assisted vaginal delivery 2. hemorrhage Post-op Diagnosis:: 1. Retained placenta s/p vacuum assisted vaginal delivery 2. hemorrhage Procedure performed:: Exam under anesthesia with spontaneous expulsion of placenta Surgeon:: Sandra Page DO Emer[employer] Wheel Molder(s):: Iesha Gavin DO SOLUTION SALES SENIOR EXECUTIVE:: Other (RAFAEL De Leon) Anesthesia: GETA Estimated blood loss (mL): 2,000 Clinical Note:: Mrs Ela Potts is a 32 yo at 41 weeks admitted to [facility] Labor and Delivery for active Labor. Upon arrival to L&D cervical exam was /-1. GBS negative. Amniotomy was performed with clear fluid noted. She progressed to complete without further intervention. She pushed for approximately 1 hr 19 minutes. Vacuum was placed on baby's head secondary to maternal exhaustion and poor expulsive efforts. Vacuum was pulled through one contraction, no pop offs. Baby delivered without difficulty. See delivery note for details. Fundal massage and gentle traction on umbilical cord failed to deliver placenta. Cord avulsion occurred. Manual extraction was attempted without success. Decision was made to proceed to OR for extraction of retained placenta. Operative findings:: 1. Retained placenta delivering spontaneously in the OR with brisk vaginal bleeding 2. Intraoperative abdominal ultrasound performed without any further retained products Operative note:: While in preop, lEa reported she felt different. On exam, brisk vaginal bleeding was noted. She was quickly taken to the OR and placed under general anesthesia without difficulty. She was given 1 gram TXA, IV fluid bolus, and 2 unit PRBCs. DIC panel was ordered. Brisk bleeding continued and upon exam placenta had and was delivering spontaneously. Exam under anesthesia was performed with sterile gloves. Intraoperative abdominal ultrasound was performed. No further retained products visualized. Bleeding had slowed. Cytotec 1000 mcg was placed rectally. Bleeding was reevaluated and a slow intermittent trickle was observed. Fundal massage demonstrated fundus firm and below umbillicus. She was awaken from anesthesia without difficulty. Unasyn 3 grams every 6 hours was ordered for endometritis prophylaxis. Condition: stable Disposition: floor Specimens:: None Complications:: None
--- NOTE | 2023-08-13 16:24 | P.PNANES_ITS ---
[facility] Anesthesia Record Part I Anesthesia Record I Intake, IV Amount: 900 Hydration: Adequate Estimated blood loss (mL): 500 Urine output (mL): 400 Blood Products used (#): PRBC's (2 units PRBC's + Hespan 6% x 500mL) Blood Pressure: 107/74 SaO2: 94 Pulse Rate: 99 Airway Patency: Patent Respiratory Rate: 16 Temperature: 97.5 F Patient is:: Awake (Talking) and Stable Stable to PACU at:: 16:05
--- NOTE | 2023-08-13 17:06 | SUR.OPER ---
Emergent blood given in the OR. Both were given by this RN and verified w/ ABIMAEL Anderson. First unit: [id number] Started at 1527 117/61 146 HR 99% RA 97.0 F Ended at 1546 138/74 134 HR 98% RA 97.2 F Second Unit: [id number] Started at 1552 125/63 128 HR 98% RA 97.0 F Ended at 1602 106/64 127 HR 95% RA 97.5 F
[2023-08-13] MEDS: OXYTOCIN/RINGERS LACTATE 30 UNITS/500 ML BAG 40 UNITS IV (17:10)
[2023-08-13] MEDS: AMPICILLIN/SULBACTAM 3 GM in 0.9 % SODIUM CHLORIDE 100 ML IV ×2 (18:30→23:53)
[2023-08-13] MEDS: ACETAMINOPHEN 500MG TAB 1000 MG PO (20:45)
[2023-08-13] MEDS: SODIUM CHLORIDE 0.9% 10ML FLUSH SYRINGE 10 ML IV (23:54)
[2023-08-14 03:41] VITALS: BP 124/76; PULSE 84; RESP 17; TEMP 36.9; O2SAT 98
[2023-08-14] MEDS: AMPICILLIN/SULBACTAM 3 GM in 0.9 % SODIUM CHLORIDE 100 ML IV ×3 (06:06→18:28)
[2023-08-14 07:10] LABS: Basophils % 0.2 % (0.1-2.0); Eosinophils % 0.3 % (0.1-12.0); Hematocrit 33.5 % (37.0-47.0); Hemoglobin 11.2 g/dL (12.2-16.2); Lymphocytes # 1.8 K/mm3 (0.7-4.5); Mean Corpuscular HGB Conc 33.3 g/dL (31.8-35.4); Mean Corpuscular Hemoglobin 29.5 pg (27.0-31.2); Mean Corpuscular Volume 88.6 fl (81-99); Mean Platelet Volume 8.2 fl (7.4-10.4); Monocytes # 0.5 K/mm3 (0.1-1.0); Monocytes % 3.9 % (1.7-9.3); Neutrophils # 10.4 K/mm3 (1.8-7.8); Neutrophils % 81.6 % (37.0-80.0); Platelet Count 206 K/mm3 (142-424); Red Blood Count 3.79 M/mm3 (4.20-5.40); Red Cell Distribution Width 15.3 % (11.5-17.5); White Blood Count 12.7 K/mm3 (4.8-10.8)
[2023-08-14 09:00] VITALS: BP 112/68; PULSE 114; RESP 18; TEMP 36.9; O2SAT 98
[2023-08-14 15:14] VITALS: BP 114/73; PULSE 111; RESP 18; TEMP 36.9
--- NOTE | 2023-08-14 16:12 | P.DS_ITS ---
General Admission date:: 08/13/23 Discharge date: 08/14/23 HPI HPI HPI: PPD # 1 s/p VAVD, retained placenta with hemorrhage Ela is doing well. She is sore but not requiring any medication for pain. Very light bleeding. Breast and formula feeding. Voiding without difficulty and passing flatus. Tolerating regular diet. No fever/chills, chest pain or shortness of breath. No headaches, vision changes, lightheadedness/dizziness. Ambulating well ad nico. Admits to bilateral feet swelling. No calf pain. Hospital Course Hospital Course Hospital Course: Mrs Ela Potts is a 32 yo at 41 weeks admitted to [facility] Labor and Delivery for active Labor. Upon arrival to L&D cervical exam was /-1. GBS negative. Amniotomy was performed with clear fluid noted. She progressed to complete without further intervention. She pushed for approximately 1 hr 19 minutes. Vacuum was placed on baby's head secondary to maternal exhaustion and poor expulsive efforts. Vacuum was pulled through one contraction, no pop offs. Baby delivered without difficulty. Fundal massage and gentle traction on umbilical cord failed to deliver placenta. Cord avulsion occurred. Manual extraction was attempted without success. Decision was made to proceed to OR for extraction of retained placenta. She delivered a live female baby, Alva Vargas, weighing 7 lb 7 oz. APGARs 6 (1 min), 7 (5 min). EBL 200 mL While in preop, Ela reported she felt different. On exam, brisk vaginal bleeding was noted. She was quickly taken to the OR and placed under general anesthesia without difficulty. She was given 1 gram TXA, IV fluid bolus, and 2 unit PRBCs. DIC panel was ordered. Brisk bleeding continued and upon exam placenta had and was delivering spontaneously. Exam under anesthesia was performed with sterile gloves. Intraoperative abdominal ultrasound was performed. No further retained products visualized. Bleeding had slowed. Cytotec 1000 mcg was placed rectally. Bleeding was reevaluated and a slow intermittent trickle was observed. Fundal massage demonstrated fundus firm and below umbillicus. She was awaken from anesthesia without difficulty. Unasyn 3 grams every 6 hours was ordered for endometritis prophylaxis. She did well . Breast and formula feeding but plans to exclusively breast feed. Appropriate lochia. Voiding without difficulty and passing flatus. Tolerating regular diet. No fever/chills, chest pain or shortness of breath. No headaches, vision changes, lightheadedness/dizziness. Ambulating well ad nico. Vital signs stable, afebrile. Heart regular rate and rhythm. Lungs clear to auscultation. Abdomen soft, appropriate mild tenderness to palpation. Bilateral +1 pedal edema. No calf tenderness. She was discharged PPD #1 but will stay as guest until baby is discharge. Follow-up in the office in 2 weeks or sooner if needed. 08/13/23 Hgb/Hct: 13.8/40.1 PPD # 1 s/p 2 units PRBCs, 08/14/23 Hgb/Hct: 11.2/33.5; WBC 12.7 Exam Data for Last 24 hours Vital signs and Labs for Last 24 Hours: Temp Pulse Resp BP Pulse Ox O2 Del Method 98.4 F 111 H 18 114/73 98 Room Air 08/14/23 15:14 08/14/23 15:14 08/14/23 15:14 08/14/23 15:14 08/14/23 09:00 08/14/23 09:00 Laboratory Results - last 24 hr 08/13/23 06:32: Crossmatch (AHG) See Detail 08/14/23 06:38: WBC 12.7 H D, RBC 3.79 L, Hgb 11.2 L, Hct 33.5 L, MCV 88.6, MCH 29.5, MCHC 33.3, RDW 15.3, Plt Count 206, MPV 8.2, Neut % (Auto) 81.6 H, Lymph % (Auto) 14.0, [place] % (Auto) 3.9, Eos % (Auto) 0.3, Baso % (Auto) 0.2, Neut # (Auto) 10.4 H, Lymph # (Auto) 1.8, [place] # (Auto) 0.5, Eos # (Auto) 0.0, Baso # (Auto) 0.0 I & O for Last 24 hours: Intake & Output 08/11/23 08/12/23 08/13/23 08/14/23 23:59 23:59 23:59 23:59 Intake Total 900 / 900 Balance 900 / 900 Weight 210 lb Constitutional Constitutional: no acute distress and cooperative *Routine HEENT Exam Head: Present normocephalic and atraumatic Eye: Absent conjunctivae pink ENT: Present mucous membranes moist *Routine Neck Exam Neck: Present full ROM *Routine Respiratory Exam Respiratory: Present CTA bilaterally and normal respiratory effort *Routine Cardiovascular Exam Cardiovascular: Present RRR *Routine Abdominal Exam Abdominal: Present soft and tenderness (mild appropriate tenderness); Absent distended Comments: Uterine fundus firm and below umbilicus *Routine Rectal Exam Patient deferred: visual exam *Routine Exam Patient deferred: external exam *Routine Extremities Exam Extremities: Present edema (+1 bilateral pedal edema) and full ROM; Absent calf tenderness *Routine Neurological Exam Neurological: Present alert, oriented X3 and moving all extremities Routine Psychiatric Exam Psychiatric: Present normal affect and cooperative Results Data Completed and Pending Labs on day of discharge: Labs from last 24 hours 08/14/23 08/13/23 06:38 06:32 WBC 12.7 H D RBC 3.79 L Hgb 11.2 L Hct 33.5 L MCV 88.6 MCH 29.5 MCHC 33.3 RDW 15.3 Plt Count 206 MPV 8.2 Neut % (Auto) 81.6 H Lymph % (Auto) 14.0 Colleton % (Auto) 3.9 Eos % (Auto) 0.3 Baso % (Auto) 0.2 Neut # (Auto) 10.4 H Lymph # (Auto) 1.8 Colleton # (Auto) 0.5 Eos # (Auto) 0.0 Baso # (Auto) 0.0 Crossmatch (AHG) See Detail DS: Diagnosis Discharge Diagnosis (1) Status post vacuum-assisted vaginal delivery: Status: Acute Code(s): Z87.59 - Personal history of other complications of , childbirth and the puerperium (2) Post term , 41 weeks: Status: Acute Code(s): O48.0 - Post-term ; Z3A.41 - 41 weeks gestation of (3) Active labor: Status: Acute (4) Gestational diabetes mellitus, class A1: Status: Acute Code(s): O24.410 - Gestational diabetes mellitus in , diet controlled (5) Dilation of renal pelvis of fetus: Status: Acute (6) Rubella non-immune status, antepartum: Status: Acute Code(s): O09.899 - Supervision of other high risk pregnancies, unspecified trimester; Z28.39 - Other underimmunization status (7) Retained placenta with hemorrhage, condition: Status: Acute Code(s): O72.0 - Third-stage hemorrhage (8) hemorrhage: Status: Acute Code(s): O72.1 - Other immediate hemorrhage Qualifiers: hemorrhage type: unspecified Qualified Code(s): O72.1 - Other immediate hemorrhage Meds Home Medications and Allergies Home Medications Medication Instructions Recorded Confirmed Type vits no.126-ferrous fum 1 tab PO DAILY Supplement 01/15/23 08/13/23 History 28 mg iron-folic acid 800 mcg tablet (Classic ) vitamin B complex (B 1 tab PO DAILY Supplement 01/15/23 08/13/23 History Complex-Vitamin B12 tablet) New Prescriptions to Start Prescriptions: Allergies Allergy/AdvReac Type Severity Reaction Status Date / Time No Known Allergies Allergy Verified 08/10/23 08:21 Discharge Plan Disposition Patient Disposition: Home, Self-Care Condition: Good Discharge Order Discharge Orders: Discharge Order (Routine); Ordered 08/14/23 Ordered By: Sandra Page Follow up Plan Follow up with: Sandra Page DO [Staff Physician] - 2 weeks Prescriptions/Medication Reconciliation: Continued Classic 28 mg iron- 800 mcg tablet 1 tab PO DAILY vitamin B complex [B Complex-Vitamin B12] Tablet 1 tab PO DAILY Problem Reconciliation Problems Reviewed?: Yes Patient Discharge Instructions ACTIVITY: Limited activity DIET: continue same diet and regular diet Additional Instructions: Discharge: 1. Take 800 mg Ibuprofen every 8 hours as needed for pain. You can also take 500-1000 mg of Tylenol in between doses, every 6-8 hours. 2. Nothing in the vagina for 6 weeks - no intercourse, douching or tampons. No tub baths/hot tubs or swimming pools 3. Reasons to return to L&D or call On-Call doctor - fever (greater than 100.4) - heavy vaginal bleeding (soaking through 1 pad in less than 2 hours) - vaginal discharge (malodorous and/or purulent) - severe headaches not resolved by medication or rest and leg tenderness/edema 4. depression/blues - Normal to feel anxious/overwhelmed for first 2 weeks - Talk to your doctor if: severe anxiety, trouble bonding with baby, withdrawing from other family members, thoughts of harming yourself or others Sandra Page DO [facility] [phone] Providers Primary Care Provider: Stevie Garcia Provider: Iesha Gavin Attending Provider: Iesha Gavin
[2023-08-14] MEDS: PRENATAL MULTIVITAMIN W/IRON 1 EACH PO (18:27)
[2023-08-14] MEDS: MEASLES,MUMPS,RUBELLA VACCINE VIAL 0.5 ML SQ (19:23)
--- NOTE | 2023-08-16 07:29 | P.PNANES_ITS ---
[facility] Anesthesia Record Part II Anesthesia Record Part II Discharge Time: 16:50 Destination: Obstetric Gynecology Dept PACU nurse assessment reviewed?: Yes Patient Condition:: Good Anesthesia Complications:: None Swallowing reflex intact?: Yes Airway Patency: Patent Cyanosis?: No Blood Pressure: 145/97 SaO2: 100 Respiratory Rate: 18 Pulse Rate: 92 Temperature: 97.5 F Mental Status: Alert & Oriented Pain level:: 0 Nausea and/or vomitting:: None Intake, IV Amount: 1,400 Hydration: Adequate
[2023-08-16 07:32] VITALS: BP 145/97; PULSE 92; RESP 18; TEMP 36.4; O2SAT 100
== END 2023-08-14 19:54 | disposition home or self-care (01) | DRG 807 ==
LOC: OBOUT 06:26 → OB 06:26
PROVIDERS: Admitting Provider Obstetrics & Gynecology; PCP Family Medicine; Referring Provider Obstetrics & Gynecology; Visit Provider Obstetrics & Gynecology
PROC: 8E0UXY7 Examination of Female Reproductive System (ICD-10-PCS; principal; 2023-08-13 15:00)
DX: O72.1 Other immediate postpartum hemorrhage (principal); Z37.0 Single live birth; O24.429 Gestational diabetes mellitus in childbirth, unspecified control; Z3A.41 41 weeks gestation of pregnancy; O48.0 Post-term pregnancy
CPT/HCPCS: 59409; 57410; 59025; 74018; 76856; 80053; 80307; 81001; 85025; 86850; 87086; 90707; 94761; 96372; G0283; G0463; J2405; J2710; P9016

== ENCOUNTER 2025-03-21 08:54 | Outpatient (CLI) | payer SELFPAY ==
--- NOTE | 2025-03-21 09:00 | US_ITS ---
PROCEDURE: US OB /MATERNAL DETAIL CLINICAL INDICATION: 20 week anatomy scan COMPARISON: No exams were available for comparison FINDINGS: Transabdominal sonographic images of the pelvis were obtained. From her established due date she is 20 weeks 5 days. Single viable intrauterine gestation. Breech position. Placenta: Anteriorplacenta grade 1. There is an average amount of fluid. The cervix appears satisfactory. Closed and measuring 5.0 cm in length. Complete survey performed and was unremarkable on the submitted images as in PACS. No discrete anomalies identified on survey imaging by technologist. Active fetus. Three-vessel cord with satisfactory umbilical cord insertion. 4- chamber heart noted. Situs, aortic arch, LVOT, RVOT, three-vessel view appear normal. Survey of brain & ventricles Unremarkable. Cerebellum, thalamus, choroid plexus, cisterna magna appear normal. Face and neck survey unremarkable. Profile, nasion, lips and nose appeared normal. Diaphragm and chest views unremarkable. Abdomen: Both kidneys noted and unremarkable. Stomach and bladder noted and satisfactory. The kidneys have bilateral renal pelvis dilation measuring 6.9 mm and 8.0 mm Spine: Survey of the spine satisfactory with no anomalies identified nor imaged. Cervical, thoracic, lower spine appear normal. Both arms and legs noted. Amniotic Fluid: Adequate. MVP 3.43 cm There appears to be an anterior inferior fibroid measuring 2.6 cm x 2.1 cm x 1.7 cm. Measurements: Average ultrasound age 21weeks. Estimated due date by ultrasound age 1208/01/2025. Estimated weight 381g BPD = 20weeks 6days HC = 20weeks 6days AC = 21weeks 0 days FL = 20weeks 6days Growth Percentile= 52 Heart Rate = 147bpm Cerebellum = 20weeks 2days Humerus = 21weeks 6days HC/AC is 1.17 FL/BPD is 0.7 FL/AC is 0.22 IMPRESSION: 1. Viable fetus in the breech presentation with an anterior placenta grade 1. 2. The fluid is within normal limits with an MVP 3.43 cm. 3. There is bilateral renal pelvis dilation measuring 6.9 mm and 8.0 mm. Suggest follow-up at 28 weeks. 4. The rest of the anatomical scan appears normal. 5. biometry is consistent with the dates. 6. There appears to be a low lying anterior fibroid measuring 2.6 cm. Dictated by: Washington Keating MD 03/21/2025 11:04 Washington Keating MD in OV 03/21/2025 11:04
== END 2025-03-21 23:59 | disposition home or self-care (01) ==
LOC: RAD 08:55
PROVIDERS: PCP Family Medicine; Visit Provider Obstetrics & Gynecology
DX: O32.1XX0 Maternal care for breech presentation, not applicable or unspecified (principal); O35.EXX0 Maternal care for other (suspected) fetal abnormality and damage, fetal genitourinary anomalies, not applicable or unspecified; O34.12 Maternal care for benign tumor of corpus uteri, second trimester; O09.292 Supervision of pregnancy with other poor reproductive or obstetric history, second trimester; Z86.32 Personal history of gestational diabetes; Z36.3 Encounter for antenatal screening for malformations; Z3A.20 20 weeks gestation of pregnancy
CPT/HCPCS: 76811

== ENCOUNTER 2025-05-17 08:02 | Outpatient (CLI) | payer SELFPAY ==
--- NOTE | 2025-05-17 08:00 | US_ITS ---
PROCEDURE: US OB FOLLOW UP CLINICAL INDICATION: follow-up ultrasound for growth and baby kidneys COMPARISON: US US OB /MATERNAL DETAIL from 03/21/2025 FINDINGS: Transabdominal sonographic images of the pelvis were obtained. The following parameters are obtained: From her established due date she is 28weeks 6days Viable fetus in the cephalic presentation with an anterior placenta grade 2. There continues to be an anterior fibroid that is on the left side of the uterus inferiorly measuring 1.9 cm x 2.4 cm x 2.7 cm The cervix measures 3.1-3.9 cm in length heart rate: 138bpm bpm. Average ultrasound age 30 weeks 0 days Estimated weight 1374 grams 3 0 BPD: 30weeks 6days HC: 30weeks 3days AC: 28weeks 5days FL: 29weeks 6days HC/AC: 1.14 FL/BPD: 0.74 FL/AC: 0.23 Growth percentile: 55 Amniotic fluid index: 12.64cm, MVP 4.06 cm No obvious anomalies evident. profile seen, stomach, bladder, kidneys, three-vessel cord, four chamber heart appear normal. Kidneys: There continues to be mild bilateral renal pelvis dilation measuring 4.5 mm and 5.4 mm. IMPRESSION: 1. Viable fetus in the cephalic presentation with an anterior placenta grade 2. 2. There continues to be an anterior/lateral fibroid measuring up to 2.6 cm in size in the left lower uterine segment. 3. The fluid is within normal limits with an amniotic fluid index 12.64 cm, MVP 4.06 cm. 4. There has been good interval growth with the fetus currently 55th percentile. 5. There continues to be bilateral mild renal pelvis dilation measuring 4.5 mm and 5.4 mm. Suggest follow-up again at 36 weeks. 6. The rest of the limited anatomical scan appears normal. Dictated by: Washington Keating MD 05/18/2025 05:12 Washington Keating MD in OV 05/18/2025 05:12
== END 2025-05-17 23:59 | disposition home or self-care (01) ==
PROVIDERS: PCP Obstetrics & Gynecology; Visit Provider Obstetrics & Gynecology
DX: O34.13 Maternal care for benign tumor of corpus uteri, third trimester (principal); O35.EXX0 Maternal care for other (suspected) fetal abnormality and damage, fetal genitourinary anomalies, not applicable or unspecified; O28.3 Abnormal ultrasonic finding on antenatal screening of mother; O09.293 Supervision of pregnancy with other poor reproductive or obstetric history, third trimester; D25.9 Leiomyoma of uterus, unspecified; Z86.32 Personal history of gestational diabetes; Z36.2 Encounter for other antenatal screening follow-up; Z3A.28 28 weeks gestation of pregnancy
CPT/HCPCS: 76816

== ENCOUNTER 2025-07-02 12:54 | Outpatient (CLI) | payer SELFPAY ==
--- NOTE | 2025-07-02 13:08 | US_ITS ---
PROCEDURE: US OB FOLLOW UP CLINICAL INDICATION: growth scan/ renal dilation/fibroid measureme COMPARISON: US US OB /MATERNAL DETAIL from 03/21/2025 US US OB FOLLOW UP from 05/17/2025 FINDINGS: Transabdominal sonographic images of the pelvis were obtained. The following parameters are obtained: From her established due date she is 35weeks 3days Viable fetus in the cephalic presentation with an anterior placenta grade 2/3. There continues to be an anterior fibroid in the lower uterine segment measuring up to 2.85 cm in size. heart rate: 174bpm bpm. Average ultrasound age 36 weeks 4 days Estimated weight 2951 grams, 6 lb 8 oz BPD: 36weeks 6days, 88 percentile HC: 36weeks 4days, 44 percentile AC: 36weeks 5days, 88 percentile FL: 36weeks 0 days, 56 percentile HC/AC: 0.99 FL/BPD: 0.77 FL/AC: 0.21 Growth percentile: 78 Amniotic fluid: MVP 5.13 cm No obvious anomalies evident. profile seen, stomach, bladder, kidneys, three-vessel cord, four chamber heart appear normal. There is bilateral renal pelvis dilation measuring 10.5 mm and 9.4 mm. Suggest follow-up with the rubber block layer. IMPRESSION: 1. Viable fetus in the cephalic presentation with an anterior placenta grade 2/3. 2. The fluid is within normal limits with an MVP 5.13 cm. 3. There has been good interval growth with the fetus currently 78th percentile. 4. There continues to be an anterior fibroid in the lower uterine segment measuring 2.85 cm in size. 5. There continues to be bilateral renal pelvis dilation measuring 10.5 mm and 9.4 mm. This has increased in size. Suggest follow-up with her rubber block layer. 6. The rest of the limited anatomical scan appears normal. 7. heart rate was elevated during the exam and Dr. Page was notified. Dictated by: Washington Keating MD 07/02/2025 14:32 Washington Keating MD in OV 07/02/2025 14:32
[2025-07-02 14:02] VITALS: BMI 38.3
[2025-07-02 14:08] VITALS: BMI 38.3
== END 2025-07-02 14:23 | disposition home or self-care (01) ==
LOC: RAD 12:54 → OBOUT 13:43 → OB 13:43
PROVIDERS: Visit Provider Obstetrics & Gynecology
DX: O09.293 Supervision of pregnancy with other poor reproductive or obstetric history, third trimester (principal); O36.8330 Maternal care for abnormalities of the fetal heart rate or rhythm, third trimester, not applicable or unspecified; O34.13 Maternal care for benign tumor of corpus uteri, third trimester; O35.EXX0 Maternal care for other (suspected) fetal abnormality and damage, fetal genitourinary anomalies, not applicable or unspecified; Z86.32 Personal history of gestational diabetes; Z3A.35 35 weeks gestation of pregnancy
CPT/HCPCS: 76816; 99212

== ENCOUNTER 2025-07-04 10:52 | Outpatient (CLI) | payer SELFPAY | END 2025-07-04 23:59 | LOC: LAB.DROPOF 07-09 10:52 | PROVIDERS: Visit Provider Obstetrics & Gynecology | DX: Z34.83 Encounter for supervision of other normal pregnancy, third trimester (principal); Z3A.00 Weeks of gestation of pregnancy not specified | CPT/HCPCS: 86403 ==

== ENCOUNTER 2025-07-26 09:15 | Outpatient (CLI) | payer SELFPAY | END 2025-07-26 23:59 | disposition home or self-care (01) | LOC: LAB.DROPOF 07-27 09:20 | PROVIDERS: Visit Provider Obstetrics & Gynecology | DX: O99.891 Other specified diseases and conditions complicating pregnancy (principal); R31.9 Hematuria, unspecified; M54.9 Dorsalgia, unspecified; Z3A.00 Weeks of gestation of pregnancy not specified | CPT/HCPCS: 87086 ==

== ENCOUNTER 2025-07-27 01:52 | Inpatient (IN) | payer SELFPAY ==
[2025-07-27 01:55] VITALS: BMI 40.0
--- OUTSIDE RECORDS SUMMARY | 2025-07-27 01:56 | XMS_ITS | Patient Health Record ---
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
[2025-07-27 02:21] LABS: Microscopic, Urine URINE MICROSCOPIC (MICROSCOPIC)
[2025-07-27 02:23] LABS: Bilirubin,Urine Negative (Negative); Color,Urine YELLOW (Yellow); Glucose,Urine (UA) Negative (Negative); Ketones,Urine Negative (Negative); Leukocyte Esterase,Urine Negative (Negative); PH,Urine 6.0 (5.0-8.5); Protein,Urine Negative (Negative); Specific Gravity, Urine 1.020 (1.005-1.030); Urobilinogen,Urine 0.2 EU/dl (0.2)
[2025-07-27 02:27] LABS: Fetal Membrane Rupture (Rapid) Positive (Negative)
[2025-07-27 02:29] LABS: RBC,Urine 50-100 #/hpf (0-3)
[2025-07-27 02:30] LABS: Bacteria,Urine 1+ /lpf; Squamous Epithelial Cell,Urine 50-100 #/hpf (0-5)
[2025-07-27] MEDS: LACTATED RINGERS 1000ML 1,000 ML 1000 ML IV ×2 (02:30→03:37)
[2025-07-27 02:48] LABS: Hematocrit 35.9 % (37.0-47.0); Hemoglobin 12.6 g/dL (12.2-16.2); Immature Granulocytes % 0.3 %; Mean Corpuscular HGB Conc 35.1 g/dL (31.8-35.4); Mean Corpuscular Hemoglobin 29.3 pg (27.0-31.2); Mean Corpuscular Volume 83.5 fl (81-99); Nucleated Red Blood Cells % 0 %; Platelet Count 230 K/mm3 (142-424); Red Blood Count 4.30 M/mm3 (4.20-5.40); Red Cell Distribution Width-SD 42.6 fL; White Blood Count 7.5 K/mm3 (4.8-10.8)
[2025-07-27 03:11] VITALS: BP 130/81; PULSE 86; RESP 18; TEMP 36.6; O2SAT 98; BMI 40.0
--- NOTE | 2025-07-27 03:59 | P.PNANES_ITS ---
[facility] Disclaimer: The information contained in this section may have been updated after the patient was seen, as this information can be updated by other users. Medical History (Updated 07/26/25 @ 10:06 by Sandra Page DO) Back pain affecting Hematuria without proteinuria Dilation of renal pelvis of fetus Right calf pain History of gestational diabetes in prior , currently History of hemorrhage, currently History of retained placenta Status post vacuum-assisted vaginal delivery hemorrhage Retained placenta with hemorrhage, condition Post term , 41 weeks Active labor Gestational diabetes mellitus, class A1 Rubella non-immune status, antepartum with inconclusive viability, fetus 1 Surgical History History of surgery on arm Family History Other No significant family history Social History Smoking Status: Never smoker alcohol intake: never substance use type: denies use current occupational status: unemployed Travel in the last 8 weeks?: None Have you lived/traveled outside US in past 30 days?: No Contact w/someone who lives/traveled outside US past 30 days?: No Exposure to someone with infectious disease in past 14 days?: No Do you have a fever (greater than 100.4 F or 38 C)?: No Have you tested positive for COVID-19?: No Exposed to someone with COVID-19 in past 14 days?: No Do you have a sore throat?: No Do you have a cough?: No Do you have any weakness?: No Do you have any diarrhea?: No Are you experiencing any unusual bleeding?: No Do you have any muscle aches/pain?: No Do you have any abdominal pain?: No Are you experiencing loss of taste or smell?: No [facility] Anesthesia Checklist Patient Identification Patient Identification: Arm Band and Verbal (Name & ) Structural Data Admitted From: Inpatient Planned Operative Procedure/s: Labor Epidural Verified Documents: Surgical Consent NPO Status Verified Time NPO: 00:00 Chart Verification Results Verified: CBC and BMP Additional verifications Patient : Yes Anesthesia Reactions: No Airway Assessment Mallampati Score:: Class II C-Spine Mobility Assessed: No TMJ Mobility Assessed: No Dentition: Good Dentition Neurological Assessment Level of Consciousness: Awake, Alert and Appropriate Hx Seizures: No Numbness or tingling in extremities: No Anesthesia Plan Anesthesia Risk discussed: Yes Anesthesia Plan: Verified ASA Class: II Anesthesia Type: Epidural
--- NOTE | 2025-07-27 06:10 | EXP.HP ---
History of Present Illness *Admission Date: 07/27/25 *Reason for visit:: Active Labor *History of present illness: Ela Potts is a very pleasant 34yo who presented to L&D this morning with painful contractions and was noted to be 8 cm and in labor. She has an REBECCA of 08/03/2025 based on last menstrual period and confirmed with 9-week ultrasound. Her gestational age today is 39 weeks and 0 days gestation. On presentation patient endorsed good movement and denies any leakage of fluid or vaginal bleeding. This was complicated by a history of a vacuum-assisted vaginal delivery with retained placenta and the subsequent . She had GDM A1 and her prior . She has a 2.6 fibroid that was noted to be in the lower uterine segment on ultrasound. The infant was also noted to have bilateral renal hydronephrosis A+, antibody negative, rubella non immune, hepatitis Bs Ag negative, hepatitis C negative, RPR negative, HIV negative 1 hour GTT: not completed GBS negative PFSH PFSH Disclaimer: The information contained in this section may have been updated after the patient was seen, as this information can be updated by other users. Medical History (Updated 07/26/25 @ 10:06 by Sandra Page DO) Back pain affecting Hematuria without proteinuria Dilation of renal pelvis of fetus Right calf pain History of gestational diabetes in prior , currently History of hemorrhage, currently History of retained placenta Status post vacuum-assisted vaginal delivery hemorrhage Retained placenta with hemorrhage, condition Post term , 41 weeks Active labor Gestational diabetes mellitus, class A1 Rubella non-immune status, antepartum with inconclusive viability, fetus 1 Surgical History History of surgery on arm Family History Other No significant family history Social History Smoking Status: Never smoker alcohol intake: never substance use type: denies use current occupational status: unemployed Travel in the last 8 weeks?: None Have you lived/traveled outside [place] in past 30 days?: No Contact w/someone who lives/traveled outside US past 30 days?: No Exposure to someone with infectious disease in past 14 days?: No Do you have a fever (greater than 100.4 F or 38 C)?: No Have you tested positive for COVID-19?: No Exposed to someone with COVID-19 in past 14 days?: No Do you have a sore throat?: No Do you have a cough?: No Do you have any weakness?: No Do you have any diarrhea?: No Are you experiencing any unusual bleeding?: No Do you have any muscle aches/pain?: No Do you have any abdominal pain?: No Are you experiencing loss of taste or smell?: No Other Medical History Have you received the Flu Vaccine for this season: No Have you received the Pneumonia Vaccine: No Review of Systems Review of Systems Review of systems (narrative): Review of Systems Constitutional: Denies fever, chills, and sweats Eyes: Denies vision change/ pain Respiratory: Denies cough and shortness of breath Cardiovascular: Denies chest pain and lightheadedness Gastrointestinal: Admits abdominal pain with contractions. Denies nausea, vomiting. Genitourinary: Denies dysuria and incontinence Musculoskeletal: Denies shoulder pain and back pain Neurological: Denies change in speech or headaches Meds Home Medications and Allergies Home Medications ?Medication ?Instructions ?Recorded ?Confirmed ?Type vits no.126-ferrous fum 1 tab PO DAILY Supplement 01/15/23 07/27/25 History 28 mg iron-folic acid 800 mcg tablet (Classic ) Beef Liver PO DAILY 12/28/24 07/26/25 History cholecalciferol (vitamin D3) 25 25 mcg PO DAILY 12/28/24 07/27/25 History mcg (1,000 unit) capsule magnesium glycinate 300 mg PO DAILY 12/28/24 07/27/25 History vitamin B complex 1 tab PO DAILY 12/28/24 07/27/25 History omega-3 fatty acids 1,000 mg 1,000 mg PO DAILY 04/25/25 07/27/25 History capsule New Prescriptions to Start Prescriptions: Allergies Allergy/AdvReac Type Severity Reaction Status Date / Time No Known Allergies Allergy Verified 07/27/25 04:08 Exam Data for Last 24 hours Vital signs and Labs for Last 24 Hours: Temp Pulse Resp BP Pulse Ox O2 Del Method 97.9 F 86 18 130/81 98 Room Air 07/27/25 03:11 07/27/25 03:11 07/27/25 03:11 07/27/25 03:11 07/27/25 03:11 07/27/25 03:11 Laboratory Results - last 24 hr 07/27/25 02:00: Urine Color Yellow, Urine Appearance Sl cloudy, Urine pH 6.0, Ur Specific [place] 1.020, Urine Protein Negative, Urine Glucose (UA) Negative, Urine Ketones Negative, Urine Blood 2+ A, Urine Nitrate Negative, Urine Bilirubin Negative, Urine Urobilinogen 0.2, Ur Leukocyte Esterase Negative, Urine RBC 50-100, Urine WBC 5-10, Ur Squamous Epith Cells 50-100, Urine Bacteria 1+ 07/27/25 02:07: Membrane Rupture Positive A 07/27/25 02:24: WBC 7.5, RBC 4.30, Hgb 12.6, Hct 35.9 L, MCV 83.5, MCH 29.3, MCHC 35.1, RDW 14.0, Plt Count 230, MPV 9.7, Neut % (Auto) 68.5, Lymph % (Auto) 22.4, [place] % (Auto) 7.2, Eos % (Auto) 1.1, Baso % (Auto) 0.5, Neut # (Auto) 5.1, Lymph # (Auto) 1.7, [place] # (Auto) 0.5, Eos # (Auto) 0.1, Baso # (Auto) 0.0, Blood Type A Positive, Antibody Screen Negative I & O for Last 24 hours: Intake & Output 07/24/25 07/25/25 07/26/25 07/27/25 23:59 23:59 23:59 23:59 Intake Total 1000 / 1000 Balance 1000 / 1000 Weight 212 lb Narrative: General: patient is alert oriented in no acute distress and responds appropriately to questions. HEENT: NCAT, EOMI, moist mucous membranes, neck supple with full ROM Cardiovascular: RRR +S1/S2, no murmurs or rubs Pulmonary: Clear to auscultation bilaterally, nonlabored breathing, symmetric chest rise Abdominal: Gravid abdomen appropriate for gestation. No guarding, rebound, or tenderness noted. Extremities: trace edema, no tenderness or cyanosis noted Skin: Normal turgor, intact, warm. Negative for erythema, pallor, petechia, or lesions Neurologic: Negative for sensory or motor deficit Psychiatric: Normal affect, normal thought process, good judgment and insight, no depression or anxious mood appreciated. *Routine HEENT Exam Head: Present normocephalic and atraumatic Eye: Present EOMI, PERRL and normal accommodation; Absent conjunctival icterus, scleral injection, nystagmus or exophthalmos ENT: Present mucous membranes moist *Routine Respiratory Exam Respiratory: Present CTA bilaterally, normal respiratory effort, able to speak in complete sentences and symmetric chest movement; Absent accessory muscle use, decreased breath sounds, rales, respiratory distress, wheezes, distant breath sounds or diminished air movement *Routine Cardiovascular Exam Cardiovascular: Present RRR, Normal S1 and Normal S2; Absent murmur or gallop *Routine Abdominal Exam Abdominal: Present soft and normoactive bowel sounds; Absent tenderness, distended, rebound or guarding *Routine Rectal Exam Rectal:: deferred *Routine Genitalia Exam Genitalia:: normal female Assessment and Plan *Assessment and plan (1) Hematuria without proteinuria: Status: Acute Category: Medical Code(s): R31.9 - Hematuria, unspecified (2) Dilation of renal pelvis of fetus: Status: Acute Category: Medical (3) History of gestational diabetes in prior , currently : Status: Acute Category: Medical Code(s): O09.299 - Supervision of with other poor reproductive or obstetric history, unspecified trimester; Z86.32 - Personal history of gestational diabetes (4) : Status: Acute Qualifiers: Weeks of gestation: 38 weeks Qualified Code(s): Z3A.38 - 38 weeks gestation of Category: Medical Code(s): Z34.90 - Encounter for supervision of normal , unspecified, unspecified trimester (5) History of retained placenta: Problem Comment: after miscarriage, which resulted in excessive bleeding Status: Acute Category: Medical Code(s): Z87.59 - Personal history of other complications of , childbirth and the puerperium (6) History of hemorrhage, currently : Status: Acute Category: Medical Code(s): O09.299 - Supervision of with other poor reproductive or obstetric history, unspecified trimester Plan - Monitor vitals - Admit to L&D for labor monitoring and delivery - External FHR and TOCO monitor - Exam on admission: - GBS neg/ Blood type: A+ - Hemoglobin: 12.6, Plt: 230 - Plan for epidural anesthesia - Anticipate vaginal delivery of female infant: Will tell at delivery #Rubella Non Immune -[employer] 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 AROM was completed and the pt and infant tolerated well. Thin meconium noted.
[2025-07-27] MEDS: OXYTOCIN/RINGERS LACTATE 30 UNITS/500 ML BAG 999 UNITS IV (08:00)
[2025-07-27 08:36] LABS: RPR W/RFX Titers Nonreactive (Nonreactive)
[2025-07-27] MEDS: AMPICILLIN/SULBACTAM 3 GM in 0.9 % SODIUM CHLORIDE 100 ML IV ×3 (08:39→20:17)
--- NOTE | 2025-07-27 08:51 | US_ITS ---
PROCEDURE INFORMATION: Exam: US Pelvis, Complete, Non-Obstetric Exam date and time: 07/27/2025 9:09 AM Age: 34 years old Clinical indication: Other: Chek for rpoc 1hr pp; Additional info: Manual removal of placenta / check for rpoc TECHNIQUE: Imaging protocol: Transabdominal pelvic nonobstetric ultrasound. Complete exam. Real time ultrasound with image documentation. COMPARISON: US PELVIC 08/13/2023 3:31 PM FINDINGS: Uterus: Very thickened endometrium at 5 cm. No areas of hypervascularity. There is a lower uterine segment fibroid at 25 x 13 mm. Right ovary/adnexa: Ovary is normal. No mass. Normal blood flow. Left ovary/adnexa: Ovary is normal. No mass. Normal blood flow. Intraperitoneal space: The ovaries were not imaged. There is no free fluid. Urinary bladder: Normal. IMPRESSION: Very thickened endometrium without areas of hypervascularity.
--- NOTE | 2025-07-27 09:26 | HMH.PHAAMS2 ---
- Antimicrobial Stewardship Review culture & sensitivity review Stewardship interventions: culture & sensitivity review, reviewed - no change Comments: URINE CX PENDING, PATIENT STARTED ON UNASYN FOR ENDOMETRITIS PER MD.
--- NOTE | 2025-07-27 09:27 | EXP.DN ---
Delivery Note Delivery Date:: 07/27/25 Delivery Time:: 07:58 Anesthesia Type: Epidural Was labor medically induced?: No Induction method: none Gestational age (weeks): 39 delivered prior to 39 weeks?: No Gender: Female at 1 minute: 8 at 5 minutes: 9 Delivery Procedure:: Mom complete with epidural. Pushed for approximately 47 minutes. Head delivered spontaneously over intact perineum in VIDYA position. Nuchal cord x 1 easily reduced. Anterior shoulder delivered with gentle downward pressure. Posterior shoulder and remainder of body delivered spontaneously. Baby placed on maternal abdomen, mouth and nares bulb suctioned, warmed/dried and stimulated. Delayed cord clamping was performed for 60 seconds. Cord was clamped and cut by father of baby. Cord blood was obtained. Placenta was still in place at 15 minutes. She has history of retained placenta followed by hemorrhage. Discussed manual extraction with Ela and her . Decision was made to proceed with manual extraction. Placenta was manually extracted and appeared to be intact. No lacerations. Mom and baby were skin to skin and doing well after delivery. She recieved TXA 1 gram after delivery of baby secondary to history of retained placenta and hemorrhage. Unasyn 3 gram q 6 hours x 24 hours ordered for prophylaxis secondary to manual extraction of placenta. Live female baby (baby's name is Brandi Valdes) APGARs 8 (1 min), 9 (5 min) EBL Placental Delivery Description: Manual Removal
[2025-07-27] MEDS: ACETAMINOPHEN 500MG TAB 1000 MG PO (11:15)
[2025-07-27] MEDS: BENZOCAINE-MENTHOL SPRAY 56GM CAN TP (15:09)
[2025-07-27] MEDS: WITCH HAZEL 40 PADS/BOX 1 EACH TP (15:09)
[2025-07-27] MEDS: IBUPROFEN 400 MG TABLET 800 MG PO (16:16)
[2025-07-27 20:15] VITALS: BP 121/72; PULSE 91; RESP 18; TEMP 37; O2SAT 97
[2025-07-28] MEDS: ACETAMINOPHEN 500MG TAB 1000 MG PO (00:41)
[2025-07-28] MEDS: AMPICILLIN/SULBACTAM 3 GM in 0.9 % SODIUM CHLORIDE 100 ML IV (02:34)
[2025-07-28 03:51] VITALS: BP 120/77; PULSE 83; RESP 17; TEMP 36.7; O2SAT 98
[2025-07-28 04:08] LABS: Hepatitis B Surface Antigen Negative (Negative)
[2025-07-28 07:00] LABS: Hematocrit 32.5 % (37.0-47.0); Hemoglobin 11.0 g/dL (12.2-16.2); Immature Granulocytes % 0.5 %; Mean Corpuscular HGB Conc 33.8 g/dL (31.8-35.4); Mean Corpuscular Hemoglobin 28.9 pg (27.0-31.2); Mean Corpuscular Volume 85.5 fl (81-99); Nucleated Red Blood Cells % 0 %; Platelet Count 204 K/mm3 (142-424); Red Blood Count 3.80 M/mm3 (4.20-5.40); Red Cell Distribution Width-SD 44.1 fL; White Blood Count 7.7 K/mm3 (4.8-10.8)
[2025-07-28 08:27] VITALS: BP 122/80; PULSE 94; RESP 18; TEMP 36.4; O2SAT 98
--- NOTE | 2025-07-28 12:34 | EXP.DC.SUM ---
General Admission date:: 07/27/25 Discharge date: 07/28/25 HPI HPI HPI: PPD # 1 s/p Feeling well. Pain controlled. Breast feeding. Lochia is appropriate. Voiding without difficulty and passing flatus. Tolerating regular diet. Denies fever/chills, chest pain and shortness of breath. No headaches, vision changes, lightheadedness/dizziness. No lower extremity swelling. Ambulating well ad nico. Hospital Course Hospital Course Hospital Course: Ela Potts is a very pleasant 34yo who presented to L&D this morning with painful contractions and was noted to be 8 cm and in active labor. She has an REBECCA of 08/03/2025 based on last menstrual period and confirmed with 9-week ultrasound. Her gestational age today is 39 weeks and 0 days gestation. complicated by a history of a vacuum-assisted vaginal delivery with retained placenta and the subsequent hemorrhage. She has a 2.6 fibroid that was noted to be in the lower uterine segment on ultrasound. The baby was also noted to have bilateral renal hydronephrosis on ultrasound. She had a normal spontaneous vaginal delivery on 07/27/25 at 0758. She delivered a live female baby, Brandi, weighing 7 lb 12 oz. Apgars 8 (1 min), 9 (5 min). EBL 100 mL. Placenta was still in place at 15 minutes. She has history of retained placenta followed by hemorrhage. Discussed manual extraction with Ela and her . Decision was made to proceed with manual extraction. Placenta was manually extracted and appeared to be intact. She received Unasyn for endometritis prophylaxis secondary to manual extraction. She did well . Pain controlled. Breast feeding. Light lochia. Voiding without difficulty and passing flatus. Tolerating regular diet. Denies fever/chills, chest pain and shortness of breath. No headaches, dizziness/lightheadedness or vision changes. Vital signs stable, afebrile. Heart regular rate and rhythm. Lungs clear to auscultation. Abdomen soft, nontender. She had +1 bilateral lower extremity swelling. No calf pain. Ambulating well ad nico. Normal hospital course. PPD # 1 Hgb was 11.0. She was discharged to home on PPD # 1 with instructions to follow-up in the office in 2 weeks or sooner if needed. Exam Data for Last 24 hours Vital signs and Labs for Last 24 Hours: Temp Pulse Resp BP Pulse Ox O2 Del Method 97.6 F 94 H 18 122/80 98 Room Air 07/28/25 08:27 07/28/25 08:27 07/28/25 08:27 07/28/25 08:27 07/28/25 08:27 07/28/25 08:27 Laboratory Results - last 24 hr 07/27/25 02:24: Hep Bs Antigen Negative 07/28/25 06:33: WBC 7.7, RBC 3.80 L, Hgb 11.0 L, Hct 32.5 L, MCV 85.5, MCH 28.9, MCHC 33.8, RDW 14.1, Plt Count 204, MPV 9.7, Neut % (Auto) 68.4, Lymph % (Auto) 23.8, [place] % (Auto) 5.4, Eos % (Auto) 1.4, Baso % (Auto) 0.5, Neut # (Auto) 5.3, Lymph # (Auto) 1.8, [place] # (Auto) 0.4, Eos # (Auto) 0.1, Baso # (Auto) 0.0 I & O for Last 24 hours: Intake & Output 07/25/25 07/26/25 07/27/25 07/28/25 23:59 23:59 23:59 23:59 Intake Total 3060.00 / 3060.00 Output Total 800 / 800 Balance 2260.00 / 2260.00 Weight 212 lb Constitutional Constitutional: no acute distress and cooperative *Routine HEENT Exam Head: Present normocephalic and atraumatic Eye: Absent conjunctivae pink ENT: Present mucous membranes moist *Routine Neck Exam Neck: Present full ROM *Routine Respiratory Exam Respiratory: Present CTA bilaterally and normal respiratory effort *Routine Cardiovascular Exam Cardiovascular: Present RRR *Routine Abdominal Exam Abdominal: Present soft; Absent tenderness *Routine Rectal Exam Patient deferred: visual exam *Routine Exam Patient deferred: external exam *Routine Extremities Exam Extremities: Present edema (+1 bilateral lower extremity edema) and full ROM; Absent calf tenderness *Routine Neurological Exam Neurological: Present alert, moving all extremities and normal speech Routine Psychiatric Exam Psychiatric: Present normal affect and cooperative Results Data Completed and Pending Labs on day of discharge: Labs from last 24 hours 07/28/25 07/27/25 06:33 02:24 WBC 7.7 RBC 3.80 L Hgb 11.0 L Hct 32.5 L MCV 85.5 MCH 28.9 MCHC 33.8 RDW 14.1 Plt Count 204 MPV 9.7 Neut % (Auto) 68.4 Lymph % (Auto) 23.8 [place] % (Auto) 5.4 Eos % (Auto) 1.4 Baso % (Auto) 0.5 Neut # (Auto) 5.3 Lymph # (Auto) 1.8 [place] # (Auto) 0.4 Eos # (Auto) 0.1 Baso # (Auto) 0.0 Hep Bs Antigen Negative DS: Diagnosis Discharge Diagnosis (1) Active labor: Status: Acute (2) Status post vaginal delivery: Status: Acute (3) History of gestational diabetes in prior , currently : Status: Acute Code(s): O09.299 - Supervision of with other poor reproductive or obstetric history, unspecified trimester; Z86.32 - Personal history of gestational diabetes (4) History of retained placenta: Status: Acute Code(s): Z87.59 - Personal history of other complications of , childbirth and the puerperium Problem details: after miscarriage, which resulted in excessive bleeding (5) History of hemorrhage, currently : Status: Acute Code(s): O09.299 - Supervision of with other poor reproductive or obstetric history, unspecified trimester (6) Retained placenta or membranes without haemorrhage: Status: Acute Meds Home Medications and Allergies Home Medications ?Medication ?Instructions ?Recorded ?Confirmed ?Type vits no.126-ferrous fum 1 tab PO DAILY Supplement 01/15/23 07/27/25 History 28 mg iron-folic acid 800 mcg tablet (Classic ) Beef Liver 1 cap PO DAILY 12/28/24 07/27/25 History cholecalciferol (vitamin D3) 25 25 mcg PO DAILY 12/28/24 07/27/25 History mcg (1,000 unit) capsule magnesium glycinate 300 mg PO DAILY 12/28/24 07/27/25 History vitamin B complex 1 tab PO DAILY 12/28/24 07/27/25 History omega-3 fatty acids 1,000 mg 1,000 mg PO DAILY 04/25/25 07/27/25 History capsule New Prescriptions to Start Prescriptions: Allergies Allergy/AdvReac Type Severity Reaction Status Date / Time No Known Allergies Allergy Verified 07/27/25 04:08 Discharge Plan Disposition Patient Disposition: Home, Self-Care Condition: Good Discharge Order Discharge Orders: Discharge Order (Routine); Ordered 07/28/25 Ordered By: Sandra Page Follow up Plan Follow up with: Sandra Page DO [Staff Physician, [employer]] - 08/15/25 9:15 am Prescriptions/Medication Reconciliation: Continued vitamin B complex Tablet 1 tab PO DAILY cholecalciferol (vitamin D3) 25 mcg (1,000 unit) capsule 25 mcg PO DAILY magnesium glycinate 100 mg magnesium capsule 300 mg PO DAILY Beef Liver 1 CAP capsule 1 cap PO DAILY Classic 28 mg iron- 800 mcg tablet 1 tab PO DAILY omega-3 fatty acids 1,000 mg capsule 1,000 mg PO DAILY Problem Reconciliation Problems Reviewed?: Yes Patient Discharge Instructions ACTIVITY: Limited activity DIET: continue same diet and regular diet Additional Instructions: Discharge: 1. Take 800 mg Ibuprofen every 8 hours as needed for pain. You can also take 500-1000 mg of Tylenol in between doses, every 6-8 hours. 2. Nothing in the vagina for 6 weeks - no intercourse, douching or tampons. No tub baths/hot tubs or swimming pools 3. Reasons to return to L&D or call On-Call doctor - fever (greater than 100.4) - heavy vaginal bleeding (soaking through 1 pad in less than 2 hours) - vaginal discharge (malodorous and/or purulent) - severe headaches not resolved by medication or rest and leg tenderness/edema 4. depression/blues - Normal to feel anxious/overwhelmed for first 2 weeks - Talk to your doctor if: severe anxiety, trouble bonding with baby, withdrawing from other family members, thoughts of harming yourself or others Sandra Page DO [facility] [phone] Print Language: Maltese Providers Primary Care Provider: Provider,Referral Admit Provider: Sandra Page Attending Provider: Sandra Page
== END 2025-07-28 13:15 | disposition home or self-care (01) | DRG 807 ==
PROVIDERS: Obstetrics & Gynecology; Admitting Provider Obstetrics & Gynecology; Visit Provider Obstetrics & Gynecology
DX: O34.13 Maternal care for benign tumor of corpus uteri, third trimester (principal); Z37.0 Single live birth; D25.9 Leiomyoma of uterus, unspecified; Z3A.39 39 weeks gestation of pregnancy; O35.EXX0 Maternal care for other (suspected) fetal abnormality and damage, fetal genitourinary anomalies, not applicable or unspecified; O77.0 Labor and delivery complicated by meconium in amniotic fluid; O69.81X0 Labor and delivery complicated by cord around neck, without compression, not applicable or unspecified; O73.0 Retained placenta without hemorrhage; Z87.59 Personal history of other complications of pregnancy, childbirth and the puerperium; Z28.39 Other underimmunization status; Z23 Encounter for immunization
CPT/HCPCS: 36415; 59025; 62323; 76856; 81001; 84112; 85025; 86592; 86850; 87340; 94761; J0295; J2003; J2795; J3010; J7050; J7120